=== PATIENT | male | born 1990 | race Two or more races ===

== ENCOUNTER 2024-03-09 09:14 | Emergency (ER) | payer MEDICAID, SELFPAY ==
[2024-03-09 09:41] VITALS: BP 128/93; PULSE 80; RESP 18; TEMP 36.7; O2SAT 100; BMI 32.1
--- NOTE | 2024-03-09 10:05 | PD.EDBACK ---
ED Back Injury Pain RME/HPI General Chief Complaint: Back Pain/Injury Stated Complaint: BACK PAIN Time Seen by Provider: 03/09/24 09:43 Arrival date/time: 03/09/24 09:14 This is a 33-year-old male that comes in with complaints of right-sided back pain That started last night. Patient reports that pain originates in the right buttock and runs down his right leg. Patient denies any urinary incontinence any fecal incontinence. Patient denies any numbness or tingling. Patient denies trauma. Patient denies saddle weakness. Patient denies any urinary symptoms. Related Data Previous Rx's ?Medication ?Instructions ?Recorded cyclobenzaprine 5 mg tablet 5 mg PO TID PRN muscle spasm #12 08/19/17 tabs ibuprofen 400 mg tablet 400 mg PO QID PRN pain #30 tabs 08/19/17 hydrochlorothiazide 12.5 mg tablet 12.5 mg PO QAM #30 tabs 06/26/23 cyclobenzaprine 10 mg tablet 10 mg PO TID PRN muscle spasm #20 03/09/24 tabs ibuprofen 800 mg tablet 800 mg PO Q6H PRN pain #14 tabs 03/09/24 Allergies Allergy/AdvReac Type Severity Reaction Status Date / Time No Known Allergies Allergy Verified 08/19/17 09:28 Review of Systems Review of Systems Systems Reviewed: All systems reviewed, normal except as documented Past Medical History Social History SMOKING STATUS: Former smoker Past Medical History Comments PMH COMMENT: none ED Exam General General appearance: Present alert and in no apparent distress Head Head exam: Present atraumatic Eye Eye exam: Present normal appearance, PERRL and EOMI ENT ENT exam: Present normal exam, normal oropharynx and mucous membranes moist Neck Neck exam: Present normal inspection, full ROM and trachea midline Chest Chest inspection: Present normal inspection and symmetric chest wall rise Respiratory Respiratory exam: Present normal lung sounds bilaterally Cardiovascular Cardiovascular exam: Present regular rate, normal rhythm and normal heart sounds Abdominal Exam Abdominal exam: Present soft Extremities Exam Extremities exam: Present normal inspection and full ROM Back Exam Back exam: Present normal inspection and full ROM Neurological Exam Neurological exam: Present alert, oriented X3 and CN II-XII intact Psychiatric Psychiatric exam: Present normal affect and normal mood Skin Skin exam: Present warm, dry, intact and normal color Course Quality Measures none Orders Category Date Time Status CYCLObenzaPRINE [Flexeril] Med 03/09/24 10:04 Discontinued 5 mg PO X1 ONE HYDROcodone*/APAP 5/325 [[place] 5/325] Med 03/09/24 10:04 Discontinued 1 tab PO X1 ONE Ketorolac Inj [Toradol Inj] Med 03/09/24 10:04 Discontinued 60 mg IM X1 ONE Ondansetron Odt [Zofran Odt] Med 03/09/24 10:04 Discontinued 4 mg PO X1 ONE Vital Signs Vital signs: Vital Signs Temperature 98.1 F 03/09/24 09:41 Pulse Rate 80 03/09/24 09:41 Respiratory Rate 18 03/09/24 09:41 Blood Pressure 128/93 H 03/09/24 09:41 Pulse Oximetry (%) 100 03/09/24 09:41 Oxygen Delivery Method Room Air 03/09/24 09:41 Back Pain / Injury MDM Narrative MDM Narrative:: This is a 33-year-old male that comes in with complaints of right-sided back pain That started last night. Patient reports that pain originates in the right buttock and runs down his right leg. Patient denies any urinary incontinence any fecal incontinence. Patient denies any numbness or tingling. Patient denies trauma. Patient denies saddle weakness. Patient denies any urinary symptoms. Pt given flexeril, norco, toradol, and zofran and felt better. Pt told to follow up with primary provider in 1-2 days. Patient data External records reviewed:: [facility] previous records Clinical information provided by:: patient Social determinants that could affect healthcare access:: none Patient has the following chronic illnesses:: none How is presenting disease/condition affected by chronic disease/condition?: no chronic disease Evaluation data The following diagnostics were reviewed and interpreted by me:: other (specify) (none) Lab and/or radiology exams considered but not ordered:: ct of liumbar spine if no improvement of symptoms Interpretation Summary: none Medications / Prescriptions Medications or Prescriptions considered but not ordered:: none Medication administrations:: Medication Administration History Discontinued Medications Hydrocodone Bitart/Acetaminophen (Hydrocodone/Apap 5/325 Tablet) 1 tab PO X1 ONE Stop: 03/09/24 10:05 Last Admin: 03/09/24 10:24 Dose: 1 tab Documented By: REED Cyclobenzaprine HCl (Cyclobenzaprine 5 Mg Tablet) 5 mg PO X1 ONE Stop: 03/09/24 10:05 Last Admin: 03/09/24 10:24 Dose: 5 mg Documented By: ARF Ketorolac Tromethamine (Ketorolac Inj 60 Mg/2 Ml Vial) 60 mg IM X1 ONE Stop: 03/09/24 10:05 Last Admin: 03/09/24 10:25 Dose: 60 mg Documented By: ARF Ondansetron HCl (Ondansetron Odt 4 Mg Tabrap) 4 mg PO X1 ONE; Protocol Stop: 03/09/24 10:05 Last Admin: 03/09/24 10:25 Dose: 4 mg Documented By: ARF see mar Consultations Consultation(s) initiated? (list below): No Diagnosis Most likely diagnosis given after review of the tests above:: back pain, sciatica Admission Indicated Admission indicated?: not indicated Admission Request Was there a request for admission?: No Disposition Plan Disposition Plan: Discharge Discharge Attestation Discharge Attestation: The patient and all family members were given an opportunity to ask questions and understood the discharge instructions. Discharge instructions specifically effects, indications for sooner follow up or return to the emergency department, and the expected course of current diagnosis. Patient condition: Stable Discharge Plan Plan Patient Disposition: HOME (Self Care) Patient condition on transfer: Stable Prescriptions/Referrals Prescriptions/Med Rec: New cyclobenzaprine 10 mg tablet 10 mg PO TID PRN (Reason: muscle spasm) Qty: 20 0RF ibuprofen 800 mg tablet 800 mg PO Q6H PRN (Reason: pain) Qty: 14 0RF No Action ibuprofen 400 mg tablet 400 mg PO QID PRN (Reason: pain) Qty: 30 0RF cyclobenzaprine 5 mg tablet 5 mg PO TID PRN (Reason: muscle spasm) Qty: 12 0RF hydrochlorothiazide 12.5 mg tablet 12.5 mg PO QAM Qty: 30 0RF Problem List Clinical Impression: Back pain Patient/Caregiver Discharge Instructions Education Materials: ED Back and Neck Pain, General Additional Instructions: Please get rest take medications as prescribed.. Follow-up with primary provider in 1 to 2 days. Come back to the emergency room if symptoms change or worsen. Print Language: Yakut Stand Alone Forms: Yuli Award Info., Patient Portal Info Letter PA/RODRIGO Supervising Physician CHRIS/RODRIGO Supervising Physician: alisha
[2024-03-09] MEDS: CYCLObenzaPRINE 5 MG TABLET PO (10:24)
[2024-03-09] MEDS: HYDROcodone/APAP 5/325 TABLET 1 TAB PO (10:24)
[2024-03-09] MEDS: KETOROLAC INJ 60 MG/2 ML VIAL IM (10:25)
[2024-03-09] MEDS: ONDANSETRON ODT 4 MG TABRAP PO (10:25)
== END 2024-03-09 10:36 | disposition home or self-care (01) ==
LOC: SERX 10:36
PROVIDERS: Emergency Provider Emergency Medicine
DX: M54.9 Dorsalgia, unspecified (principal)
CPT/HCPCS: 96372; 99283; J1885; Q0162; A9270